=== PATIENT | male | born 1980 | race African-American/Black ===

== ENCOUNTER → 2018-06-22 | Emergency (ER) | payer OTHER ==
[~2018-06-22] VITALS: Ht 198.1 cm; Wt 131.5 kg
[~2018-06-22] MED LIST: IBUPROFEN600 MG ORAL
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
[2018-06-22 15:15] VITALS: BP 138/90
--- NOTE | 2018-06-22 16:00 | Diagnostic Imaging Report ---
Indication: Pain Technique: 3 views right hand Comparison: none Findings: There is a fracture deformity of the fifth metacarpal distally, which appears healed. Small osseous fragment is seen projected anterior to the second proximal interphalangeal joint, with adjacent defect of the anterior corner of the base of the middle phalanx. This appears corticated and therefore probably old No definite acute fractures. No dislocations. There is mild degenerative change of the fourth distal interphalangeal joint. The remaining joint spaces are preserved Impression: Evidence of old healed fifth metacarpal fracture. Suspect old second middle phalangeal base avulsion fracture. No definite acute bony trauma
== END | disposition home or self-care (01) ==
LOC: EMR 14:19
DX: S69.91XA Unspecified injury of right wrist, hand and finger(s), initial encounter (principal); W22.8XXA Striking against or struck by other objects, initial encounter; Y92.9 Unspecified place or not applicable; I10 Essential (primary) hypertension; Z88.8 Allergy status to other drugs, medicaments and biological substances
CPT/HCPCS: 99283

== ENCOUNTER 2019-11-17 12:16 | Emergency (ER) | payer OTHER ==
[~2019-11-17] VITALS: Ht 198.1 cm; Wt 132.4 kg
--- NOTE | 2019-11-17 12:43 | Emergency Room Report ---
History of Present Illness General Chief Complaint: cough Source: Patient (Nina Collazo M.D.) Present Illness HPI Patient is a 23-year-old male past medical history of obesity, hypertension and cigarette smoking who presents to the ER complaining of cough. Patient states that he began coughing yesterday. He states that he has posttussive emesis and also had a nosebleed while coughing yesterday. Patient complains of generalized body aches. Patient denies any fever or chills. He denies any chest pain but co shortness of breath. He denies any recent travel or sick contacts. Patient denies any abdominal pain. Patient states that he has not been around anybody who is sick and has been trying to isolate due to the COVID- 19 pandemic. (Nina Collazo M.D.) Allergies: Coded Allergies: CEFTRIAXONE (Verified Allergy, Severe, Hives, 06/22/18) COVID-19 Screening Contact w/high risk pt: No Recent Travel to affected area: No Experienced COVID-19 symptoms?: No (Nina Collazo M.D.) Patient History Past Medical History: HTN Social History: Reports: smoking Reviewed Nursing Documentation: PSxH: Agreed (Nina Collazo M.D.) Nursing Documentation-PMH Hx Hypertension: Yes (Nina Collazo M.D.) Review of Systems All Other Systems: negative except mentioned in HPI (Nina Collazo M.D.) Physical Exam Vital Signs Date Time Temp Pulse Resp B/P (MAP) Pulse Ox O2 Delivery O2 Flow Rate FiO2 11/17/19 12:27 97.9 97 18 152/98 (116) 90 Room Air Sp02 EP Interpretation: reviewed, normal - O2 sat at bedisde 99% on RA General Appearance: no apparent distress, alert, GCS 15, non-toxic Eyes: bilateral eye normal inspection, bilateral eye PERRL ENT: hearing grossly normal, normal pharynx, no angioedema, normal voice Neck: full range of motion, supple/symm/no masses Respiratory: chest non-tender, lungs clear, normal breath sounds, speaking full sentences Cardiovascular #1: regular rate, rhythm, no edema Gastrointestinal: normal bowel sounds, non tender, soft, non-distended, no guarding, no rebound Rectal: deferred Genitourinary: normal inspection, no CVA tenderness Musculoskeletal: back normal, normal range of motion, calf tenderness Neurologic: alert, motor strength/tone normal, oriented x3, sensory intact, responsive, speech normal Psychiatric: judgement/insight normal, memory normal, mood/affect normal, no suicidal/homicidal ideation Skin: no rash Lymphatic: no adenopathy (Nina Collazo M.D.) Medical Decision Making Diagnostic Impression: Primary Impression: Cough Additional Impression: Post-tussive emesis ER Course Patient's vital signs are stable. Chest x-ray demonstrates no acute cardiopulmonary pathology. EKG demonstrates no ST elevation. Ultrasound negative for DVT. Patient's d-dimer is elevated. He is pending a CTA of the chest to rule out pulmonary embolism. Patient signed out to Dr. Frausto at [address], reevaluation and final disposition. (Nina Collazo M.D.) ER Course Patient signed out to me pending CT scan of the chest. CT scan of the chest completed showed no evidence of PE. On my assessment patient alert oriented in no distress. No active coughing. Vital signs stable. Patient was discharged home to self-care. I did recommend isolation until symptoms resolved. At least 1 week. Patient was given return precautions. (Laurent Frausto M.D.) EKG Diagnostic Results EKG Time: 12:38 EP Interpretation: MD Zay Rate: normal Rhythm: NSR ST Segments: no acute changes Other Impression sinus arrhythmia ASA given to the pt in ED: No (Nina Collazo M.D.) Rhythm Strip Diag. Results Rhythm Strip Time: 12:45 EP Interpretation: yes - MD Zay Rate: 94 Rhythm: NSR, no PVC's, no ectopy (Nina Collazo M.D.) Chest X-Ray Diagnostic Results Chest X-Ray Diagnostic Results : # of Views/Limited/Complete: 1 View Indication: Shortness of Breath EP Interpretation: Yes - Y Interpretation: no consolidation, no effusion, no pneumothorax Impression: No acute disease Electronically Signed by: MD Zay (Nina Collazo M.D.) Last Vital Signs Date Time Temp Pulse Resp B/P (MAP) Pulse Ox O2 Delivery O2 Flow Rate FiO2 5/13/20 12:27 97.9 97 18 152/98 (116) 90 Room Air (Nina Collazo M.D.) Disposition: HOME, SELF-CARE Condition: Improved Nina Collazo M.D. November 17, 2019 12:42 Laurent Frausto M.D. November 17, 2019 16:24
[2019-11-17 12:45] VITALS: BP 152/98
[2019-11-17 13:22] LABS: BASOPHILS % (AUTO) 1.6 % (0.0-2.0); HEMATOCRIT 41.3 % (42.0-52.0); LYMPHOCYTES % (AUTO) 30.3 % (20.0-45.0); MEAN CORPUSCULAR VOLUME 91 FL (80-99); MONOCYTES % (AUTO) 7.7 % (1.0-10.0); NEUTROPHILS % (AUTO) 57.4 % (45.0-75.0); PLATELET COUNT 334 K/UL (150-450); RED BLOOD COUNT 4.56 M/UL (4.70-6.10); RED CELL DISTRIBUTION WIDTH 11.3 % (11.6-14.8)
[2019-11-17 13:43] LABS: ANION GAP 10 mmol/L (5-15); BLOOD UREA NITROGEN 16 mg/dL (7-18); CALCIUM 8.9 MG/DL (8.5-10.1); CARBON DIOXIDE 26 MMOL/L (21-32); CHLORIDE 104 MMOL/L (98-107); POTASSIUM 3.9 MMOL/L (3.5-5.1); SODIUM 140 MMOL/L (136-145)
[2019-11-17 13:47] LABS: ALANINE AMINOTRANSFERASE 36 U/L (12-78); ALBUMIN 4.5 G/DL (3.4-5.0); ALBUMIN/GLOBULIN RATIO 1.2 (1.0-2.7); ALKALINE PHOSPHATASE 73 U/L (46-116); ASPARTATE AMINO TRANSFERASE 20 U/L (15-37); BILIRUBIN,TOTAL 0.3 MG/DL (0.2-1.0)
[2019-11-17] MEDS ORDERED: Omnipaque 350 100ml vial INJ PRN (14:00)
[2019-11-17 14:50] VITALS: BP 148/87
[2019-11-17] MEDS ORDERED: Docusate 100mg cap ORAL ONE (15:11)
--- NOTE | 2019-11-17 15:14 | Diagnostic Imaging Report ---
Indication: Chest pain, shortness of breath Technique: CT pulmonary angiogram performed utilizing automated exposure control with intravenous contrast. Axial, sagittal and coronal reconstructions were obtained. 3-D volumetric reconstructions were also performed. CT dose: Total DLP 504.9 mGycm; CTDI vol 91.2 mGy Comparison: No prior CT angiogram the chest available for comparison. Correlation made to concurrent chest radiograph Findings: There is satisfactory opacification of the pulmonary arteries. No pulmonary embolism is identified. There is borderline enlargement of the main pulmonary artery measuring 2.2 cm diameter. There is no thoracic aortic aneurysm or dissection. There is conventional branching anatomy of the aortic arch. Visualized portions of the bilateral common carotid and vertebral arteries appear patent. Imaged portions of the abdominal aorta are normal in caliber. There is no focal airspace consolidation, pleural effusion or pneumothorax. There are scattered small blebs and a cluster of small bulla in the anterior left upper lobe. Mild emphysematous changes in the upper lobes. Minimal dependent atelectatic changes noted in the posterior lower lobes bilaterally. Heart size within normal limits. There is no pericardial effusion. There is no CT evidence of right heart strain. There is no pathologically enlarged hilar or mediastinal lymphadenopathy. Some soft tissue attenuation is noted within the anterior mediastinum most likely representing residual or rebound thymus. Imaged portions of the thyroid unremarkable. Partially imaged upper abdomen demonstrates no acute abnormality. Mild degenerative changes noted in the thoracic spine. No acute fracture identified. IMPRESSION: * No pulmonary embolism. * No thoracic aortic aneurysm or dissection. * Mild emphysematous changes in the upper lobes. Scattered small pulmonary blebs. * No focal airspace consolidation, pleural effusion or pneumothorax. The CT scanner at [facility] is accredited by the [employer] and the scans are performed using protocols designed to limit radiation exposure to as low as reasonably achievable to attain images of sufficient resolution adequate for diagnostic evaluation.
[2019-11-17 15:47] VITALS: BP 151/84
[2019-11-17 15:49] LABS: APPEARANCE,URINE CLEAR; BILIRUBIN, URINE NEGATIVE (NEGATIVE); COLOR,URINE PALE YELLOW; GLUCOSE, URINE (UA) NEGATIVE (NEGATIVE); KETONES,URINE NEGATIVE (NEGATIVE); LEUKOCYTE ESTERASE ,URINE NEGATIVE (NEGATIVE); NITRITE,URINE NEGATIVE (NEGATIVE); PH,URINE 9 (4.5-8.0); PROTEIN,URINE 2+ (NEGATIVE); UROBILINOGEN,URINE NORMAL MG/DL (0.0-1.0)
--- NOTE | 2019-11-19 16:30 | Diagnostic Imaging Report ---
Procedure: XRAY Chest 1v Reason for study: Reason For Exam: COUGH Comparison films: None. FINDINGS: A single one view chest is obtained. Vascularity is normal. The lung castellanos are clear bilaterally. Cardiac and mediastinal silhouette are within normal limits. CP angles are sharp. The bony thorax appear unremarkable. IMPRESSION: NO ACUTE CARDIOPULMONARY DISEASE.
--- NOTE | 2019-11-19 16:30 | Diagnostic Imaging Report ---
EXAM: ULTRASOUND Venous Duplex Scan Freedom Leg CLINICAL HISTORY: Leg pain and edema. COMPARISON: None TECHNIQUE: Doppler examination include grayscale images obtained with and without compression, and color and spectral doppler analysis. FINDINGS: Doppler examination shows normal spontaneity, phasicity, compressibility in the bilateral lower extremities. There is no thrombus identified by grayscale. Normal color and spectral flow is identified. There is no evidence of valvular incompetency or insufficiency. IMPRESSION: UNREMARKABLE VENOUS DUPLEX.
== END 2019-11-17 15:47 | disposition home or self-care (01) ==
LOC: EDBD 12:16 → EMR 12:46
DX: R05 Cough (principal); R11.10 Vomiting, unspecified; I10 Essential (primary) hypertension; F17.200 Nicotine dependence, unspecified, uncomplicated; Z88.1 Allergy status to other antibiotic agents
CPT/HCPCS: 36415; 71045; 71275; 80053; 81003; 83605; 83735; 83880; 84484; 85025; 85379; 85610; 85730; 87040; 93005; 93970; 96360; J7030; Q9967; Z7502; 99284